=== PATIENT | male | born 1995 | race Two or more races ===

== ENCOUNTER 2019-02-14 12:15 | Emergency (ER) | payer OTHER ==
[~2019-02-14] VITALS: Ht 177.8 cm; Wt 104.3 kg
[2019-02-14] MEDS ORDERED: MORPHINE SULFATE 4 MG/ML VIAL. IV ONE (14:30)
[2019-02-14] MEDS ORDERED: IV NORMAL SALINE 1000ML BAG 1,000 ML IV ONE ×2 (14:30)
--- NOTE | 2019-02-14 14:35 | PHYS DOC ---
Past Medical History Past Medical History: No Pertinent History Past Surgical History: No Surgical History Alcohol Use: Occasionally Drug Use: None Adult General Chief Complaint Chief Complaint: ABDOMINAL PAIN HPI HPI Patient is a 23-year-old male, previously healthy, but with a family history of diabetes, who presents to the emergency department for evaluation. He states he has been having some right-sided abdominal discomfort since this past Monday, but has not had any nausea, vomiting. Eating does seem to worsen his pain somewhat. He went to [facility] urgent [facility] on Monday and had some labs drawn, and was called today to come back for follow-up, because his blood sugar was found to be 370. I spoke to the primary physician who saw the patient, and he states that they did a urine test and the patient had ketones in his urine and there was concern about the possibility of ketoacidosis that he was sent to the emergency department for evaluation. The patient is currently not having any abdominal pain. He denies any fevers or chills, chest pain, shortness of breath. He does admit to polyuria. There are no alleviating or exacerbating factors to his symptoms otherwise. Review of Systems Review of Systems Constitutional: Denies fever or chills [] Eyes: Denies change in visual acuity, redness, or eye pain [] HENT: Denies nasal congestion or sore throat [] Respiratory: Denies cough or shortness of breath [] Cardiovascular: The patient denies any shortness of breath, chest pain, palpitations, or orthopnea [] GI: Denies nausea, vomiting, bloody stools or diarrhea [] : Denies dysuria or hematuria [] Musculoskeletal: Denies back pain or joint pain [] Integument: Denies rash or skin lesions [] Neurologic: Denies headache, focal weakness or sensory changes [] Endocrine: No additional information not addressed in HPI [] All other systems were reviewed and found to be within normal limits, except as documented in this note. Current Medications Current Medications Current Medications Medications (Trade) Dose Ordered Sig/Joce Start Time Stop Time Status Last Admin Dose Admin Info (CONTRAST GIVEN -- Rx MONITORING) 1 each PRN DAILY PRN 02/14/19 16:00 02/16/19 15:59 Iohexol (Omnipaque 300 Mg/ml) 75 ml 1X ONCE 02/14/19 16:00 02/14/19 16:01 DC 02/14/19 15:57 75 ML Morphine Sulfate (Morphine Sulfate) 4 mg 1X ONCE 02/14/19 14:30 02/14/19 14:43 DC Sodium Chloride 1,000 ml @ 1,000 mls/hr 1X ONCE 02/14/19 14:30 02/14/19 15:29 DC 02/14/19 15:13 1,000 MLS/HR Allergies Allergies Allergies Coded Allergies Type Severity Reaction Last Updated Verified No Known Drug Allergies 02/14/19 No Physical Exam Physical Exam PHYSICAL EXAM: CONSTITUTIONAL: Well developed, well nourished HEAD: normocephalic, atraumatic EENT: PERRL, EOMI. Conjunctivae normal color, sclerae non-icteric; moist mucous membranes. NECK: Supple, non-tender; no meningismus. LUNGS: Lungs CTA, breathing even and unlabored. Normal air movement. HEART: Regular rate and rhythm, no murmur CHEST: No deformity; non-tender ABDOMEN: The abdomen is soft, there is right upper quadrant tenderness to palpation, with some less prominent right mid and lower abdominal tenderness to palpation, without rebound or guarding, the remainder of the abdomen is relatively soft and non-tender, no masses or bruits. EXTREM: Normal ROM; no deformity, no calf tenderness. Normal pulses palpable in all extremities. There is no pedal edema. SKIN: No rash; no diaphoresis NEURO: Alert; normal speech and cognition; CN's grossly intact; strength grossly intact without focal deficit. BACK: No CVA TTP. Current Patient Data Vital Signs Vital Signs Date Time Temp Pulse Resp B/P (MAP) Pulse Ox O2 Delivery O2 Flow Rate FiO2 02/14/19 15:30 96 18 132/72 (92) 99 Room Air 02/14/19 14:10 98.9 98.9 Lab Values Laboratory Tests Test 02/14/19 12:27 02/14/19 14:16 02/14/19 14:36 02/14/19 15:20 O2 Saturation 97 % (92-99) Arterial Blood pH 7.47 (7.35-7.45) H Arterial Blood pCO2 at Patient Temp 28 mmHg (35-46) L Arterial Blood pO2 at Patient Temp 91 mmHg (85-108) Arterial Blood HCO3 20 mmol/L (21-28) L Arterial Blood Base Excess -2 mmol/L (-3-3) FiO2 .21 Glucose (Fingerstick) 270 mg/dL (70-99) H White Blood Count 11.4 x10^3/uL (4.0-11.0) H Red Blood Count 5.16 x10^6/uL (4.30-5.70) Hemoglobin 15.4 g/dL (13.0-17.5) Hematocrit 44.0 % (39.0-53.0) Mean Corpuscular Volume 85 fL (79-100) Mean Corpuscular Hemoglobin 30 pg (25-35) Mean Corpuscular Hemoglobin Concent 35 g/dL (31-37) Red Cell Distribution Width 13.4 % (11.5-14.5) Platelet Count 242 x10^3/uL (140-400) Neutrophils (%) (Auto) 71 % (31-73) Lymphocytes (%) (Auto) 22 % (24-48) L Monocytes (%) (Auto) 6 % (0-9) Eosinophils (%) (Auto) 1 % (0-3) Basophils (%) (Auto) 1 % (0-3) Neutrophils # (Auto) 8.1 x10^3/uL (1.8-7.7) H Lymphocytes # (Auto) 2.5 x10^3/uL (1.0-4.8) Monocytes # (Auto) 0.7 x10^3/uL (0.0-1.1) Eosinophils # (Auto) 0.1 x10^3/uL (0.0-0.7) Basophils # (Auto) 0.1 x10^3/uL (0.0-0.2) Sodium Level 135 mmol/L (136-145) L Potassium Level 4.1 mmol/L (3.5-5.1) Chloride Level 96 mmol/L (98-107) L Carbon Dioxide Level 28 mmol/L (21-32) Anion Gap 11 (6-14) Blood Urea Nitrogen 11 mg/dL (8-26) Creatinine 1.0 mg/dL (0.7-1.3) Estimated GFR (Cockcroft-Gault) 94.3 BUN/Creatinine Ratio 11 (6-20) Glucose Level 284 mg/dL (70-99) H Calcium Level 9.6 mg/dL (8.5-10.1) Total Bilirubin 0.9 mg/dL (0.2-1.0) Aspartate Amino Transferase (AST) 29 U/L (15-37) Alanine Aminotransferase (ALT) 41 U/L (16-63) Alkaline Phosphatase 90 U/L (46-116) Total Protein 8.1 g/dL (6.4-8.2) Albumin 3.5 g/dL (3.4-5.0) Albumin/Globulin Ratio 0.8 (1.0-1.7) L Lipase 326 U/L (73-393) Acetone Level Neg (NEG) Urine Collection Type Unknown Urine Color Lisa Urine Clarity Clear Urine pH 6.0 Urine Specific [place] >=1.030 Urine Protein >=300 mg/dL (NEG-TRACE) Urine Glucose (UA) >=1000 mg/dL (NEG) Urine Ketones (Stick) >=80 mg/dL (NEG) Urine Blood Moderate (NEG) Urine Nitrite Negative (NEG) Urine Bilirubin Small (NEG) Urine Urobilinogen Dipstick 1.0 mg/dL (0.2 mg/dL) Urine Leukocyte Esterase Negative (NEG) Urine RBC 1-2 /HPF (0-2) Urine WBC 5-10 /HPF (0-4) Urine Squamous Epithelial Cells Mod /LPF Urine Bacteria Few /HPF (0-FEW) Urine Hyaline Casts Few /HPF Urine Mucus Marked /LPF Urine Yeast Present /HPF Laboratory Tests 02/14/19 14:36 Laboratory Tests 02/14/19 14:36 EKG EKG [] Radiology/Procedures Radiology/Procedures [PROCEDURE: ABDOMEN LTD EXAM: Abdomen sonogram. HISTORY: Pain. TECHNIQUE: Sonographic imaging of the abdomen was performed. COMPARISON: None. FINDINGS: The liver is enlarged. There is hepatic steatosis. No focal hepatic lesion is seen. The gallbladder is unremarkable. The common bile duct, right kidney, pancreas, aorta and inferior vena cava are not well seen due to body habitus and bowel gas. IMPRESSION: 1. Hepatomegaly and hepatic steatosis. 2. Limited evaluation due to body habitus and bowel gas.] PROCEDURE: CT ABD PELV W/ IV CONTRST ONLY PQRS Compliance statement: One or more of the following individualized dose reduction techniques were utilized for this examination: 1. Automated exposure control. 2. Adjustment of the mA and/or kV according to patient size. 3. Use of iterative reconstruction technique. Indication:Right-sided abdominal pain. TECHNIQUE: CT abdomen and pelvis with IV contrast with multiplanar reformats. COMPARISON: None FINDINGS: Heart is normal in size. No pericardial or pleural effusion. Clear lung bases. Hepatic steatosis. Spleen, gallbladder, adrenals, kidneys within normal limits. No enlarged retroperitoneal or pelvic adenopathy. No free pelvic fluid or ascites. Pancreas demonstrates homogeneous enhancement with inflammatory changes in the pancreaticoduodenal groove. There is mild wall thickening of the second portion of the duodenum. No bowel obstruction. Normal appendix. The prostate and seminal vesicles show no large mass. Urinary bladder demonstrates no radiopaque stone. No pneumoperitoneum. No suspicious bony lesion. IMPRESSION: 1. Inflammatory changes centered at the pancreaticoduodenal groove and pancreatic head. Differential diagnoses includes groove pancreatitis, duodenitis or acute interstitial edematous pancreatic resolving pancreatic head. Correlate with pancreatic enzymes. 2. Hepatic steatosis. Course & Med Decision Making Course & Med Decision Making Pertinent Labs and Imaging studies reviewed. (See chart for details) []4:40 PM: The patient's condition remains stable. He states he received a prescription he thinks for metformin from the urgent care, but is uncertain of t he dose or the duration. I will give him a new prescription I instructed him to disregard the previously issued prescriptions. Internal medicine hospitalist was consulted for guidance in management of outpatient hyperglycemia. I discussed importance of further outpatient GI follow-up and establishing a primary care provider. We discussed return precautions. I also spoke with Dr. Church, from GI. recommended H2 vamsi and f/u. Dragon Disclaimer Tereon Disclaimer This electronic medical record was generated, in whole or in part, using a voice recognition dictation system. Departure Departure Impression: Primary Impression: Diabetes Additional Impression: Epigastric pain Disposition: 01 HOME, SELF-CARE Condition: STABLE Referrals: SAMANTHA VELAZQUEZ MD Patient Instructions: 1800 Calorie Diet for Diabetes Meal Planning, Abdominal Pain, Diabetes Meal Planning Guide, Diabetes, Eating Away From Home, Diets for Diabetes, Food Labeling, Gastritis, Adult, Type 2 Diabetes Mellitus, Adult Additional Instructions: Use the provided resources to help establish a primary care provider. Follow-up with gastroenterology, Dr. Church, at the number provided, for further evaluation of your abdominal pain. Begin Taking Pepcid AC 10 mg twice daily, until instructed to stop. This medication is available [id number]. Scripts Glyburide (GLYBURIDE) 2.5 Mg Tablet 1 TAB PO DAILY, #30 TAB 0 Refills Prov: ROLLY ERVIN MD 02/14/19 Metformin Hcl (METFORMIN HCL) 500 Mg Tablet 500 MG PO BIDWMEALS for ANTI-DIABETIC, #60 TAB 0 Refills Prov: ROLLY ERVIN MD 02/14/19 Problem Qualifiers ROLLY ERVIN MD Feb 14, 2019 14:35
[2019-02-14 14:56] LABS: BASO # 0.1 x10^3/uL (0.0-0.2); BASO % 1 % (0-3); EOS # 0.1 x10^3/uL (0.0-0.7); EOS % 1 % (0-3); HEMOGLOBIN 15.4 g/dL (13.0-17.5); LYMPH # 2.5 x10^3/uL (1.0-4.8); LYMPH % 22 % (24-48); MEAN CORPUSCULAR HEMOGLOBIN 30 pg (25-35); MEAN CORPUSCULAR HGB CONC 35 g/dL (31-37); MEAN CORPUSCULAR VOLUME 85 fL (79-100); MONO # 0.7 x10^3/uL (0.0-1.1); MONO % 6 % (0-9); NEUT # 8.1 x10^3/uL (1.8-7.7); NEUT % 71 % (31-73); PLATELET COUNT 242 x10^3/uL (140-400); RED BLOOD COUNT 5.16 x10^6/uL (4.30-5.70); RED CELL DISTRIBUTION WIDTH 13.4 % (11.5-14.5); WHITE BLOOD COUNT 11.4 x10^3/uL (4.0-11.0)
--- NOTE | 2019-02-14 15:04 | RAD ---
EXAM: Abdomen sonogram. HISTORY: Pain. TECHNIQUE: Sonographic imaging of the abdomen was performed. COMPARISON: None. FINDINGS: The liver is enlarged. There is hepatic steatosis. No focal hepatic lesion is seen. The gallbladder is unremarkable. The common bile duct, right kidney, pancreas, aorta and inferior vena cava are not well seen due to body habitus and bowel gas. IMPRESSION: 1. Hepatomegaly and hepatic steatosis. 2. Limited evaluation due to body habitus and bowel gas. Electronically signed by: Marj Dodd MD (02/14/2019 3:01 PM) [place] [id number]
[2019-02-14 15:08] LABS: BASE EXCESS ABG -2 mmol/L (-3-3); HCO3 ABG 20 mmol/L (21-28); PCO2 ABG 28 mmHg (35-46); PO2 ABG 91 mmHg (85-108); SAT O2 ABG 97 % (92-99)
[2019-02-14 15:25] LABS: CALCIUM 9.6 mg/dL (8.5-10.1); GFR 94.3; POTASSIUM 4.1 mmol/L (3.5-5.1)
[2019-02-14 15:26] LABS: BILIRUBIN,URINE SMALL (NEG); COLOR,URINE AMBER; NITRITE,URINE NEGATIVE (NEG); PROTEIN,URINE >=300 mg/dL (NEG-TRACE)
[2019-02-14 15:30] LABS: CLARITY,URINE CLEAR
[2019-02-14 15:31] LABS: ALBUMIN 3.5 g/dL (3.4-5.0); ALBUMIN/GLOBULIN RATIO 0.8 (1.0-1.7); TOTAL BILIRUBIN 0.9 mg/dL (0.2-1.0); TOTAL PROTEIN 8.1 g/dL (6.4-8.2)
[2019-02-14 15:34] LABS: BACTERIA,URINE FEW /HPF (0-FEW); SQUAMOUS EPITHELIAL CELL,UR MOD /LPF
[2019-02-14 15:35] LABS: HYALINE CASTS, URINE FEW /HPF; YEAST,URINE PRESENT /HPF
[2019-02-14] MEDS ORDERED: CONTRAST GIVEN. MC PRN (16:00)
[2019-02-14] MEDS ORDERED: IOHEXOL 300 MG/ML 100ML VIAL. IV ONE (16:00)
--- NOTE | 2019-02-14 16:24 | RAD ---
PQRS Compliance statement: One or more of the following individualized dose reduction techniques were utilized for this examination: 1. Automated exposure control. 2. Adjustment of the mA and/or kV according to patient size. 3. Use of iterative reconstruction technique. Indication:Right-sided abdominal pain. TECHNIQUE: CT abdomen and pelvis with IV contrast with multiplanar reformats. COMPARISON: None FINDINGS: Heart is normal in size. No pericardial or pleural effusion. Clear lung bases. Hepatic steatosis. Spleen, gallbladder, adrenals, kidneys within normal limits. No enlarged retroperitoneal or pelvic adenopathy. No free pelvic fluid or ascites. Pancreas demonstrates homogeneous enhancement with inflammatory changes in the pancreaticoduodenal groove. There is mild wall thickening of the second portion of the duodenum. No bowel obstruction. Normal appendix. The prostate and seminal vesicles show no large mass. Urinary bladder demonstrates no radiopaque stone. No pneumoperitoneum. No suspicious bony lesion. IMPRESSION: 1. Inflammatory changes centered at the pancreaticoduodenal groove and pancreatic head. Differential diagnoses includes groove pancreatitis, duodenitis or acute interstitial edematous pancreatic resolving pancreatic head. Correlate with pancreatic enzymes. 2. Hepatic steatosis. Electronically signed by: Kumar Tena DO (02/14/2019 4:21 PM) [facility]
[2019-02-14] MEDS ORDERED: METF500T16 PO (16:47)
[2019-02-14] MEDS ORDERED: GLYB2.5T2 PO (16:48)
[2019-02-14 17:17] VITALS: BP 127/76
== END 2019-02-14 17:20 | disposition home or self-care (01) ==
LOC: ER 12:15
DX: R10.13 Epigastric pain (principal); E11.9 Type 2 diabetes mellitus without complications; R16.0 Hepatomegaly, not elsewhere classified; K76.0 Fatty (change of) liver, not elsewhere classified
CPT/HCPCS: 36415; 36600; 74177; 76705; 80053; 81001; 82010; 82805; 82962; 83690; 85025; 87086; 99285; J7030; Q9967